=== PATIENT | male | born 1980 | race African-American/Black ===

== ENCOUNTER 2016-07-10 | Outpatient (CLI) | payer OTHER | END 2016-07-10 02:45 | disposition critical access hospital (66) | DX: R45.851 Suicidal ideations (principal) | CPT/HCPCS: A0425; A0429 ==

== ENCOUNTER 2016-07-10 03:00 | Emergency (ER) | payer OTHER ==
[2016-07-10] MEDS ORDERED: ACETAMINOPHEN 325 MG TABLET PO STA (09:56)
[2016-07-10] MEDS ORDERED: ACETAMINOPHEN 325 MG TABLET PO ONE (10:07)
[2016-07-11] MEDS ORDERED: NICOTINE 7 MG PATCH TOP SCH (09:00)
== END 2016-07-10 13:11 ==
DX: R45.851 Suicidal ideations (principal); F32.9 Major depressive disorder, single episode, unspecified
CPT/HCPCS: 36415; 80053; 80306; 80307; 80320; 80329; 81003; 83690; 84443; 85025; 99283; 99284; A9270

== ENCOUNTER 2016-12-13 08:50 | Outpatient (CLI) | payer OTHER | END 2016-12-13 08:51 | disposition home or self-care (01) | LOC: SC 08:50 | PROVIDERS: ATTEND Specialist | DX: G47.8 Other sleep disorders (principal); R06.83 Snoring; G47.10 Hypersomnia, unspecified; G47.00 Insomnia, unspecified | CPT/HCPCS: 99205; 99212 ==

== ENCOUNTER 2016-12-29 21:57 | Outpatient (CLI) | payer OTHER | END 2016-12-29 21:58 | disposition home or self-care (01) | DX: G47.8 Other sleep disorders (principal); R06.83 Snoring ==

== ENCOUNTER 2017-01-24 13:52 | Outpatient (CLI) | payer OTHER | END 2017-01-24 13:53 | disposition home or self-care (01) | LOC: SC 13:52 | PROVIDERS: ATTEND Specialist | DX: R06.83 Snoring (principal) | CPT/HCPCS: 99212; 99213 ==

== ENCOUNTER 2021-05-30 09:00 | Emergency (ER) | payer OTHER ==
[2021-05-30] MEDS ORDERED: KETOROLAC 30 MG/ML VIAL IVP STA (09:16)
[2021-05-30] MEDS ORDERED: HYDROmorphone 1 MG/ML CARPUJECT IVP STA ×2 (09:16→10:00)
--- NOTE | 2021-05-30 09:26 | ED Physician Documentation ---
PD HPI BACK PAIN - Stated complaint Stated Complaint: BACK PX - Chief complaint Chief Complaint: Back Pain - History obtained from History obtained from: Patient - History of Present Illness Timing - onset: How many days ago (onset of low back pain with cough 2-3 days ago, and significant worsening this morning with a sneeze. Not feeling ill generally. Pain and spasms right back now, with feeling of weakness/numbness right lower leg/foot.) Timing - details: Abrupt onset, Still present Location: Lower, Right Quality: Pain, Spasm Associated symptoms: Weakness (right lower leg and foot abrupt today), Numbness. No: Fever, Incontinent of urine, Unable to urinate Improves with: No: Rest Worsened by: Movement, Twisting. No: Palpation Contributing factors: Other (abrupt muscle use with sneezing this morning and cough couple days ago.). No: Trauma Similar symptoms before: Diagnosis (prior L5/S1 disc problem with surgery 2014. No ongoing back problems since.) Recently seen: Not recently seen Review of Systems Constitutional: denies: Fever, Chills Nose: denies: Rhinorrhea / runny nose, Congestion Throat: denies: Sore throat Respiratory: denies: Cough (not regular, just occasional allergy cough) GI: denies: Abdominal Pain, Nausea, Vomiting Skin: denies: Rash, Lesions Musculoskeletal: reports: Back pain Neurologic: denies: Near syncope PD PAST MEDICAL HISTORY - Past Medical History Cardiovascular: None Respiratory: None Neuro: None Endocrine/Autoimmune: None Psych: Depression Musculoskeletal: Other (prior L5/S1 surgery for disc 2014, and cervical disc surgery 2016. No ongoing pains. with those. ) - Past Surgical History Past Surgical History: Yes Ortho: Spine surgery - Present Medications Home Medications: Ambulatory Orders Medication Instructions Recorded Confirmed HYDROcod/ACETAM 5/325 [[place] 5/325] 1 ea PO Q6H PRN #20 tablet 05/30/21 Ibuprofen [Motrin] 600 mg PO TID PRN #25 tab 05/30/21 tiZANidine [Zanaflex] 4 mg PO Q8H PRN #25 tablet 05/30/21 - Allergies Allergies/Adverse Reactions: Allergies Allergy/AdvReac Type Severity Reaction Status Date / Time No Known Drug Allergies Allergy Verified 05/30/21 09:10 - Social History Does the pt smoke?: No Smoking Status: Never smoker Does the pt drink ETOH?: No Does the pt have substance abuse?: No - Immunizations Immunizations are current?: Yes - POLST Patient has POLST: No PD ED PE NORMAL - Vitals Vital signs reviewed: Yes - General General: Alert and oriented X 3, Well developed/nourished, Other (He appears very uncomfortable with guarded range of motion of the low back on the right. Appears to have spasms at times.) - Cardiac Cardiac: RRR, No murmur - Respiratory Respiratory: Clear bilaterally - Abdomen Abdomen: Soft, Non tender - Male Male : Deferred - Rectal Rectal: Deferred - Back Back: No CVA TTP, No spinal TTP (is slightly tender right lateral muscles and SI area. But has marked pain in the area without palpation.) - Derm Derm: Normal color, Warm and dry - Neuro Neuro: Alert and oriented X 3, No motor deficit, No sensory deficit (normal sensation to touch in dermatomal pattern. Difficulty moving right leg as causes pain in low back (versus intrinsic weakness).), Normal speech, Other (stiff back moving, but normal gait/extremity strength in ER. ) Results - Vitals Vitals: Vital Signs - 24 hr 05/30/21 05/30/21 09:02 11:13 Temperature 36.3 C L Heart Rate 83 88 Respiratory 18 17 Rate Blood Pressure 130/81 H 142/80 H O2 Saturation 100 99 Oxygen O2 Source Room air - Rads (name of study) lumbar CT Radiology: Prelim report reviewed (stable surgical changes. L4-5 with disc protrusion and moderate nerve root impingement. ), See rad report PD MEDICAL DECISION MAKING - ED course Complexity details: reviewed results (disc protrusion L4-5 but not sure if acute (no comparisons). ), re-evaluated patient (able to move about relatively more easily though still stiff, but no spasms post meds. ), considered differential (abrupt pain low back from low impact (sneezing and cough). Has prior surgery though, so consider displacement of hardware, stress fracture above or below connell rdware, etc. Can get CT and give pain meds.), d/w patient Departure - Departure Disposition: 01 Home, Self Care Clinical Impression: Lumbar disc disease Acute low back pain Qualifiers: Back pain laterality: right Sciatica presence: with sciatica Sciatica laterality: sciatica of right side Qualified Code(s): M54.41 - Lumbago with sciatica, right side Condition: Stable Record reviewed to determine appropriate education?: Yes Instructions: ED Spasm Back No Trauma Follow-Up: NEPTALI Siddiqui [Provider Group] Prescriptions: Ibuprofen [Motrin] 600 mg PO TID PRN #25 tab PRN Reason: Pain HYDROcod/ACETAM 5/325 [[place] 5/325] 1 ea PO Q6H PRN #20 tablet PRN Reason: Pain tiZANidine [Zanaflex] 4 mg PO Q8H PRN #25 tablet PRN Reason: Spasms Comments: Your CT shows normal positioning of the hardware and prior surgical site. There is some disc protrusion just above that at the L4-5 level but unclear whether that has been that way or not. We do not have comparison films to assess the acuity at this time. Hopefully your symptoms more relate to stretching of some scar tissue and muscle spasms and will improve over several days to week. The initial approach would be anti-inflammatories, muscle relaxants and added Tylenol or stronger pain medicine if needed for the discomfort and pain. I wrote a note for light duty for a week after an initial 3 days off work. [place] call for an appointment. Gentle range of motion and stretching and heat for the low back. Physical modalities such as massage or chiropractic are okay as well. I transmitted your prescriptions to [facility] pharmacy in [place]. I am prescribing a short course of narcotic pain medication for you. These are potentially dangerous and addictive medications that should be used carefully. These medications may constipate you. Take an qtrv-ior-bkazwkw stool softener such as docusate twice daily with plenty of water while taking these medications. If you go 24 hours without a bowel movement, take [id number]-kfp-[id number] MiraLAX, per package instructions. Do not drink or drive while taking these medications. If you received narcotic or sedating medications while in the emergency department do not drive for 24 hours. Store this medication in a safe, secure place and out of reach of children. It is a violation of federal law to give or sell this medication to another person or to use in a manner other than prescribed. The ED will not refill narcotic prescriptions, including prescriptions lost or stolen. You can dispose of unwanted medications at the [facility]'s office or at several pharmacies such as [facility]. Forms: Activity restrictions Discharge Date/Time: 05/30/21 11:41
--- NOTE | 2021-05-30 10:10 | CT Report ---
PROCEDURE: LUMBAR SPINE WO INDICATIONS: low back pain after sneeze; prior surgery TECHNIQUE: Noncontrast 3 mm thick sections acquired from the T12 level to the sacrum. Sagittal and coronal refo rmats were constructed. For radiation dose reduction, the following was used: automated exposure co ntrol, adjustment of mA and/or kV according to patient size. COMPARISON: Correlation is made with prior CT, 01/21/2024. FINDINGS: Image quality: There is artifact associated with the metallic hardware. Bones: There is normal bony alignment. No acute vertebral body compression fractures. No suspiciou s lytic or blastic bony lesions. Central spinal caliber is of normal overall caliber. No pars defec ts. T11-T12: Mild loss of disc height is seen. Bridging anterior osteophytes are seen. No significant deepika ral foraminal or central canal narrowing can be seen. T12-L1: Normal in appearance. L1-L2: Normal in appearance. L2-L3: Normal in appearance. L3-L4: The disc height is relatively well preserved. Mild disc bulge is seen. No significant neur al foraminal or central canal narrowing can be seen. L4-L5: Mild loss of disc height is seen. Moderate disc bulge is seen, with a superimposed central/r ight disc protrusion, as on series 3 image 59. At least moderate bilateral neuroforaminal narrowing c an be seen. There is at least moderate central canal narrowing. L5-S1: Postoperative changes are seen, with bilateral pedicle screws and vertical fixation rods. Di sc spacers are seen at this level. No findings of hardware failure or hardware loosening can be seen. There is associated streak artifact, which limits evaluation of the region. There has been removal o f portions of the posterior elements. There is at least moderate bilateral neuroforaminal narrowing seen, right worse than left. No central canal narrowing is seen. Soft tissues: No retroperitoneal masses or hematomas. Visualized aorta is normal in caliber. IMPRESSION: L5-S1 postoperative change, without complication observed. Focal L4-L5 degenerative change is seen, with a central/right disc protrusion, with at least moderate central canal narrowing. At least moderate bilateral neuroforaminal narrowing is also seen at this l evel. If it would be helpful for clinical management decision making, please consider a dedicated, schedule d lumbar MRI for further evaluation (assuming that there is no contraindication). Reviewed by: Layton Rascon MD on 05/30/2021 9:09 AM [facility] Approved by: Layton Rascon MD on 05/30/2021 9:09 AM [place] Station ID: [id number]
[2021-05-30] MEDS ORDERED: DEXAMETHASONE 10 MG/ML VIAL IVP STA (10:43)
[2021-05-30] MEDS ORDERED: methocarbamoL 500 MG TABLET PO STA (10:43)
[2021-05-30 11:39] VITALS: BP 142/80
== END 2021-05-30 11:41 | disposition home or self-care (01) ==
LOC: ED 09:00
DX: M51.16 Intervertebral disc disorders with radiculopathy, lumbar region (principal)
CPT/HCPCS: 72131; 96374; 96375; 99283; 99284; A9270; J1170

== ENCOUNTER 2021-06-17 11:11 | Emergency (ER) | payer OTHER | END 2021-06-17 11:30 | disposition home or self-care (01) | LOC: ED 11:11 | DX: Z53.21 Procedure and treatment not carried out due to patient leaving prior to being seen by health care provider (principal) ==

== ENCOUNTER 2021-08-26 08:21 | Emergency (ER) | payer OTHER ==
--- NOTE | 2021-08-26 08:37 | ED Physician Documentation ---
PD HPI CHEST PAIN - Stated complaint Stated Complaint: CHEST PX - Chief complaint Chief Complaint: Cardiac - History obtained from History obtained from: Patient - History of Present Illness Timing - onset: How many weeks ago (2-3) Timing - onset during: Light activity Timing - duration: Weeks (Has noted pain in the left chest and pectoral area as well as shoulder with deep breathing, shoulder movement, lifting and some with neck movement. No dyspnea nor cough. No known trauma per se.) Timing - details: Gradual onset, Still present Quality: Aching, Sharp Location: Left chest, Left shoulder/arm Radiation: Neck, Back Improved by: Rest Worsened by: Exertion, Inspiration, Movement, Palpation. No: Eating, Position Associated symptoms: No: Shortness of air, Nausea, Feeling faint / dizzy Similar symptoms before: Has not had sx before Recently seen: Not recently seen Review of Systems Constitutional: denies: Fever, Chills Nose: denies: Rhinorrhea / runny nose, Congestion Throat: denies: Sore throat Cardiac: reports: Chest pain / pressure (left pectoral, shoulder, scapular area. Denies rash nor sores at any point in the area.) Respiratory: denies: Cough GI: denies: Abdominal Pain, Nausea, Vomiting Skin: denies: Rash, Lesions PD PAST MEDICAL HISTORY - Past Medical History Cardiovascular: None Respiratory: None Neuro: None Endocrine/Autoimmune: None Psych: Depression Musculoskeletal: Other (prior L5/S1 surgery for disc 2014, and cervical disc surgery 2016. No ongoing pains. with those. ) - Past Surgical History Past Surgical History: Yes Ortho: Spine surgery - Present Medications Home Medications: Ambulatory Orders Medication Instructions Recorded Confirmed HYDROcod/ACETAM 5/325 [[place] 5/325] 1 ea PO Q6H PRN #20 tablet 05/30/21 Ibuprofen [Motrin] 600 mg PO TID PRN #25 tab 05/30/21 tiZANidine [Zanaflex] 4 mg PO Q8H PRN #25 tablet 05/30/21 Naproxen 500 mg PO BID 10 Days #20 tab.sr 08/26/21 Oxycodone HCl/Acetaminophen 1 each PO Q6H PRN #15 tablet 08/26/21 [Percocet 5-325 mg Tablet] - Allergies Allergies/Adverse Reactions: Allergies Allergy/AdvReac Type Severity Reaction Status Date / Time No Known Drug Allergies Allergy Verified 08/26/21 08:32 - Social History Does the pt smoke?: No Smoking Status: Never smoker Does the pt drink ETOH?: No Does the pt have substance abuse?: No - Immunizations Immunizations are current?: Yes - POLST Patient has POLST: No PD ED PE NORMAL - Vitals Vital signs reviewed: Yes - General General: Alert and oriented X 3, Well developed/nourished, Other (appears in pain with left shoulder movement and moderate breathing. ) - HEENT HEENT: Ears normal, Pharynx benign - Neck Neck: Supple, no meningeal sign, No adenopathy - Cardiac Cardiac: RRR, No murmur - Respiratory Respiratory: Clear bilaterally, Other (left suprascapular and upper pectoral area tender to palpation in muscles. Skin not tender. ) - Abdomen Abdomen: Soft, Non tender - Back Back: No CVA TTP - Derm Derm: Normal color, Warm and dry - Extremities Extremities: No edema, No calf tenderness / cord - Neuro Neuro: Alert and oriented X 3, No motor deficit, Normal speech Results - Vitals Vitals: Vital Signs - 24 hr 08/26/21 08/26/21 08/26/21 09:30 10:00 10:30 Heart Rate 79 61 62 Respiratory 13 12 12 Rate Blood Pressure 146/90 H 139/94 H 146/89 H O2 Saturation 100 100 100 08/26/21 08/26/21 08/26/21 11:00 11:30 12:00 Heart Rate 64 70 57 L Respiratory 14 12 13 Rate Blood Pressure 129/83 H 146/113 H 169/100 H O2 Saturation 99 100 100 Oxygen O2 Source Room air - EKG (time done) 08:28 Rate: Rate (enter#) (80) Rhythm: NSR [place]: Normal Intervals: Normal ND QRS: Normal Ischemia: Normal ST segments, ST elevation c/w repol. No: ST elevation c/w ischemia, ST depression Compare to prior EKG: Unchanged from prior EKG (2016) - Labs Labs: Laboratory Tests 08/26/21 08/26/21 08/26/21 08:42 08:42 08:42 WBC 7.9 RBC 4.66 L Hgb 13.6 L Hct 41.2 L MCV 88.4 MCH 29.2 MCHC 33.0 RDW 13.8 Plt Count 252 MPV 9.8 Neut # (Auto) 5.5 Lymph # (Auto) 1.7 Howard # (Auto) 0.6 Eos # (Auto) 0.0 Baso # (Auto) 0.0 Absolute Nucleated RBC 0.00 Nucleated RBC % 0.0 D-Dimer Sodium 137 Potassium 3.7 Chloride 102 Carbon Dioxide 29 Anion Gap 6.0 BUN 11 Creatinine 1.0 Estimated GFR (MDRD) 100 Glucose 105 H Calcium 9.2 Total Bilirubin 0.5 AST 16 ALT 16 Alkaline Phosphatase 45 Troponin I High Sens 3.2 Total Protein 6.9 Albumin 4.0 Globulin 2.9 Albumin/Globulin Ratio 1.4 Lipase 33 08/26/21 09:08 WBC RBC Hgb Hct MCV MCH MCHC RDW Plt Count MPV Neut # (Auto) Lymph # (Auto) Howard # (Auto) Eos # (Auto) Baso # (Auto) Absolute Nucleated RBC Nucleated RBC % D-Dimer 209.0 Sodium Potassium Chloride Carbon Dioxide Anion Gap BUN Creatinine Estimated GFR (MDRD) Glucose Calcium Total Bilirubin AST ALT Alkaline Phosphatase Troponin I High Sens Total Protein Albumin Globulin Albumin/Globulin Ratio Lipase PD MEDICAL DECISION MAKING - ED course Complexity details: reviewed results, considered differential (can look for lung process, also consider vascular like aortic dissection, FL. pattern and pain has muscular component but also hurt with breathing and is larger than a single mus deondre grouping. No rash but almost seems shingles pattern.), d/w patient Departure - Departure Disposition: 01 Home, Self Care Clinical Impression: Chest pain Qualifiers: Chest pain type: chest pain on breathing Qualified Code(s): R07.1 - Chest pain on breathing Shoulder pain, acute Qualifiers: Laterality: left Qualified Code(s): M25.512 - Pain in left shoulder Condition: Stable Record reviewed to determine appropriate education?: Yes Instructions: ED Strain Chest Wall Follow-Up: NEPTALI Siddiqui [Provider Group] Wyatt More MD [Provider Admit Priv/Credential] - Prescriptions: Naproxen 500 mg PO BID 10 Days #20 tab.sr Oxycodone HCl/Acetaminophen [Percocet 5-325 mg Tablet] 1 each PO Q6H PRN #15 tablet PRN Reason: pain Comments: No serious cause for your pain is found on your blood test, EKG, chest x-ray, chest CT scan. I presume musculoskeletal pain given the hurting with movement and breathing. Use a sling for the arm and shoulder to reduce motion over the next several days with gentle range of motion a few times a day. Anti-inflammatory of naproxen twice daily with food. To that add Tylenol every 4-6 hours if needed for pain or Percocet if needed for worse pain. Follow-up with your primary care or orthopedics if not improving well over the next 3 to 5 days. Your prescriptions were transmitted to [facility] pharmacy in [place]. I am prescribing a short course of narcotic pain medication for you. These are potentially dangerous and addictive medications that should be used carefully. These medications may constipate you. Take an mwwp-owx-jkxjdyt stool softener such as docusate twice daily with plenty of water while taking these medications. If you go 24 hours without a bowel movement, take manm-zlc-rcqzlap MiraLAX, per package instructions. Do not drink or drive while taking these medications. If you received narcotic or sedating medications while in the emergency department do not drive for 24 hours. Store this medication in a safe, secure place and out of reach of children. It is a violation of federal law to give or sell this medication to another person or to use in a manner other than prescribed. The ED will not refill narcotic prescriptions, including prescriptions lost or stolen. You can dispose of unwanted medications at the [facility]'s office or at several pharmacies such as [facility]. Discharge Date/Time: 08/26/21 12:33
[2021-08-26] MEDS ORDERED: HYDROmorphone 1 MG/ML CARPUJECT IVP STA ×2 (08:52→10:56)
[2021-08-26] MEDS ORDERED: KETOROLAC 30 MG/ML VIAL IVP STA (08:52)
[2021-08-26 09:10] LABS: BASOPHILS % (AUTO) 0.5 %; EOSINOPHILS % (AUTO) 0.4 %; HCT - HEMATOCRIT 41.2 % (42.0-52.0); HGB - HEMOGLOBIN 13.6 g/dL (14.0-18.0); LYMPHOCYTES # (AUTO) 1.7 10^3/uL (1.5-3.5); LYMPHOCYTES % (AUTO) 21.7 %; MEAN CORPUSCULAR HEMOGLOBIN 29.2 pg (27.0-31.0); MEAN CORPUSCULAR VOLUME 88.4 fL (80.0-94.0); MEAN PLATELET VOLUME 9.8 fL (7.4-11.4); MONOCYTES # (AUTO) 0.6 10^3/uL (0.0-1.0); MONOCYTES % (AUTO) 7.6 %; NEUTROPHILS # (AUTO) 5.5 10^3/uL (1.5-6.6); NEUTROPHILS % (AUTO) 69.5 %; PLT - PLATELET COUNT 252 10^3/uL (130-450); RED BLOOD COUNT 4.66 10^6/uL (4.70-6.10); RED CELL DISTRIBUTION WIDTH 13.8 % (12.0-15.0); WHITE BLOOD COUNT 7.9 x10^3/uL (4.8-10.8)
[2021-08-26 09:25] LABS: ALBUMIN/GLOBULIN RATIO 1.4 (1.0-2.2); BILIRUBIN,TOTAL 0.5 mg/dL (0.2-1.0); CALCIUM 9.2 mg/dL (8.5-10.3); POTASSIUM 3.7 mmol/L (3.5-5.0); TOTAL PROTEIN 6.9 g/dL (6.7-8.2)
--- NOTE | 2021-08-26 09:33 | XRAY Report ---
PROCEDURE: Chest 1 View X-Ray INDICATIONS: Chest Pain TECHNIQUE: One view of the chest was acquired. COMPARISON: Chest x-ray 04/24/2016 FINDINGS: Surgical changes and devices: None. Lungs and pleura: No pleural effusions or pneumothorax. Lungs are clear. Mediastinum: Mediastinal contours appear normal. Heart size is normal. Bones and chest wall: No suspicious bony lesions. Overlying soft tissues appear unremarkable. IMPRESSION: No acute pulmonary process. Reviewed by: Sherrie Pena MD on 08/26/2021 9:32 AM [facility] Approved by: Sherrie Pena MD on 08/26/2021 9:32 AM [facility] Station ID: [id number]
[2021-08-26] MEDS ORDERED: IOVERSOL 320 100 ML VIAL IVP ONE ×2 (09:55→13:26)
--- NOTE | 2021-08-26 11:47 | CT Report ---
PROCEDURE: ANGIO CHEST W/WO INDICATIONS: left chest to shoulder pain with breathing CONTRAST: IV CONTRAST: Optiray 320 ml: 80 PO CONTRAST: *NO PO CONTRAST TECHNIQUE: After the administration of intravenous contrast, 2 mm axial images were acquired from the pulmonary apices to the posterior costophrenic angles during the arterial phase. In addition, 1 mm lung kernel and 5 mm soft tissue kernel reconstructions were performed. 3-dimensional coronal oblique maximum int ensity projection (MIP) reformats, 8 mm axial MIP, and 5 mm coronal and sagittal MPR reformats were t hen performed through the thorax. For radiation dose reduction, the following was used: automated exp osure control, adjustment of mA and/or kV according to patient size. COMPARISON: CXR earlier today. FINDINGS: Image quality: Excellent. Pulmonary arteries: Pulmonary arteries are normal in size, and demonstrate no intraluminal filling d efects to suggest central pulmonary embolism. Lungs and pleura: Minimal dependent atelectasis. No pleural effusions or pneumothorax. Central and p eripheral airways are patent. Mediastinum: Heart size is normal, without pericardial effusion. No mediastinal or hilar adenopathy . Thoracic aorta is normal in caliber and enhancement. Left vertebral artery originates off the aort ic arch, variant. No aortic dissection. Esophagus is normal in caliber, without hiatal hernia. Bones and chest wall: No suspicious bony lesions. Ribs and thoracic spine appear intact throughout. No axillary or supraclavicular adenopathy. The thyroid is normal in size and there are no incident al findings. Gynecomastia. Abdomen: Visualized upper abdominal solid organs appear normal in the early arterial phase of enhanc ement. IMPRESSION: 1. No pulmonary embolism. No aortic dissection. 2. No acute airspace opacity. Reviewed by: Medhat Montalvo MD on 08/26/2021 11:46 AM PST Approved by: Medhat Montalvo MD on 08/26/2021 11:46 AM PST Station ID: [id number]
[2021-08-26] MEDS ORDERED: oxyCODONE 5 MG TABLET PO STA (12:04)
[2021-08-26] MEDS ORDERED: DEXAMETHASONE 10 MG/ML VIAL IVP STA (12:04)
[2021-08-26] MEDS ORDERED: ACETAMINOPHEN 325 MG TABLET PO STA (12:04)
[2021-08-26 12:10] VITALS: BP 169/100
== END 2021-08-26 12:33 | disposition home or self-care (01) ==
LOC: ED 08:21
DX: R07.1 Chest pain on breathing (principal); M25.512 Pain in left shoulder
CPT/HCPCS: 36415; 71045; 71275; 80053; 83690; 84484; 85025; 85379; 93005; 96374; 96375; 96376; 99284; A9270; J1170; Q9967

== ENCOUNTER 2023-11-07 11:18 | Emergency (ER) | payer OTHER ==
[2023-11-07 11:37] VITALS: O2SAT 100
--- NOTE | 2023-11-07 12:03 | XRAY Report ---
PROCEDURE: Hand 3+V RT INDICATIONS: PAIN/TENDERNESS/ SWELLING R THUMB TECHNIQUE: 3 views of the hand(s) acquired. COMPARISON: None. FINDINGS: Bones: No fractures or dislocations. Question mild subluxation at the thumb MCP joint. No suspicious bony lesions. Soft tissues: No suspicious soft tissue calcifications or masses. IMPRESSION: Question mild subluxation at the thumb MCP joint. No fractures identified. Recommend clinical correla tion. Reviewed by: Ceferino Cuadra MD on 11/07/2023 12:02 PM PDT Approved by: Ceferino Cuadra MD on 11/07/2023 12:02 PM PDT Station ID: [id number]
--- NOTE | 2023-11-07 12:56 | ED Physician Documentation ---
PD HPI UPPER EXT INJURY - Stated complaint Stated Complaint: RT HAND INJ - Chief complaint Chief Complaint: Ext Problem - History obtained from History obtained from: Patient - Additonal information Additional information: Patient is a 43-year-old male presenting for evaluation of pain to his right thumb that has been present for the past 2 weeks. Patient believes he dislocated his thumb 2 weeks ago when he was pushing a lawnmower. He has been having pain to the area since and has been having trouble with gripping and making a fist. He has not been previously evaluated for this. Review of Systems Musculoskeletal: reports: Extremity pain PD PAST MEDICAL HISTORY - Past Medical History Past Medical History: Yes Cardiovascular: None Respiratory: None Neuro: None Endocrine/Autoimmune: None GI: None : None HEENT: None Psych: Depression Musculoskeletal: Other Derm: None - Past Surgical History Past Surgical History: Yes General: Appendectomy Ortho: Spine surgery, Other - Present Medications Home Medications: Ambulatory Orders Medication Instructions Recorded Confirmed No Known Home Medications 11/07/23 11/07/23 - Allergies Allergies/Adverse Reactions: Allergies Allergy/AdvReac Type Severity Reaction Status Date / Time No Known Drug Allergies Allergy Verified 11/07/23 11:35 - Social History Does the pt smoke?: No Smoking Status: Never smoker Does the pt drink ETOH?: No Does the pt have substance abuse?: No - Immunizations Immunizations are current?: Yes - POLST Patient has POLST: No PD ED PE NORMAL - General General: Alert and oriented X 3, No acute distress, Well developed/nourished - HEENT HEENT: Atraumatic - Respiratory Respiratory: No respiratory distress - Extremities Extremities: Other (Tenderness along R thumb near MCP joint and along 1st metacarpal; able to make fist but pain and difficult with thumbs up; Sensation intact to digit, brisk cap refill) Results - Vitals Vitals: Vital Signs - 24 hr 11/07/23 11/07/23 11:29 13:08 Temperature 36.9 C 36.6 C Heart Rate 74 72 Respiratory 16 16 Rate Blood Pressure 132/76 H 128/72 O2 Saturation 100 100 Oxygen O2 Source Room air PD Medical Decision Making - ED course ED course: Patient is a 43-year-old male presenting for evaluation of right thumb pain for 2 weeks. He felt like he could have dislocated it while pushing a lawnmower but reports feeling like he popped it back in. X-ray was obtained which shows mild subluxation along the MCP joint. I did apply gentle traction and did feel Some movement but With release of traction appears to have a similar appearance with no change in symptoms. Suspect ligament injury and will place into a ulnar gutter splint and have him have close follow-up with orthopedic surgery. Departure - Departure Disposition: 01 Home, Self Care Clinical Impression: Injury of right thumb Qualifiers: Encounter type: initial encounter Qualified Code(s): S69.91XA - Unspecified injury of right wrist, hand and finger(s), initial encounter Subluxation of right thumb Qualifiers: Encounter type: initial encounter Qualified Code(s): S63.101A - Unspecified subluxation of right thumb, initial encounter Condition: Stable Instructions: ED Dislocation Thumb Follow-Up: Wyatt More MD [Provider Admit Priv/Credential] - Within 1 week Comments: Your x-ray does not show a fracture but there is a subtle misalignment of the bones which may be from a recent dislocation. I suspect that you also have ligament injuries to the area Which is why you continue to have pain and dif ficulty with range of motion. We have placed you into a splint and I have given you information for local orthopedist. I would recommend calling today to get a follow-up appointment for your injury as it has been 2 weeks. Continue with acetaminophen or ibuprofen as needed for pain, ice, elevation. IMPRESSION: Question mild subluxation at the thumb MCP joint. No fractures identified. Forms: PCP List, Activity restrictions Discharge Date/Time: 11/07/23 13:08
[2023-11-07 13:17] VITALS: BP 128/72
== END 2023-11-07 13:08 | disposition home or self-care (01) ==
LOC: ED 11:18
DX: S63.101A Unspecified subluxation of right thumb, initial encounter (principal); S69.91XA Unspecified injury of right wrist, hand and finger(s), initial encounter; X50.1XXA Overexertion from prolonged static or awkward postures, initial encounter
CPT/HCPCS: 99283

== ENCOUNTER 2023-11-16 08:53 | Outpatient (CLI) | payer OTHER ==
--- NOTE | 2023-11-16 18:33 | XRAY Report ---
PROCEDURE: Finger(s) RT INDICATIONS: RIGHT THUMB PAIN TECHNIQUE: AP hand, 3 views of the first finger(s) acquired. COMPARISON: Right hand radiograph dated 11/07/2023. FINDINGS: Bones: No fractures or dislocations. No suspicious bony lesions. Soft tissues: No suspicious soft tissue calcifications or masses. IMPRESSION: No fracture or dislocation. No suspicious bony lesions. No evidence of healing fracture.. Reviewed by: Kiet Mcallister MD on 11/16/2023 6:32 PM PDT Approved by: Kiet Mcallister MD on 11/16/2023 6:32 PM PDT Station ID: [id number]
== END 2023-11-16 08:54 | disposition home or self-care (01) ==
LOC: DI 08:53
PROVIDERS: ATTEND Orthopaedic Surgery
DX: M79.644 Pain in right finger(s) (principal)